=== PATIENT | male | born 1955 | race Caucasian/White ===

== ENCOUNTER 2017-10-27 08:34 | Observation (INO) | payer MEDICARE ==
[2017-10-27] VITALS (9 sets, daily range): BP systolic 111–164; BP diastolic 65–102; PULSE 71–98; RESP 16–18; TEMP 96–98.4; O2SAT 93–100
[~2017-10-27] VITALS: Ht 160 cm; Wt 70.8 kg
[2017-10-27] MEDS ORDERED: AMLO5TAB2 PO (08:53)
[2017-10-27] MEDS ORDERED: ISOS30TA3 PO (08:53)
[2017-10-27] MEDS ORDERED: CLON.1T T-DERMAL (08:53)
[2017-10-27] MEDS ORDERED: ROSU5 PO (08:53)
[2017-10-27] MEDS ORDERED: BISO10TA2 PO (08:53)
[2017-10-27] MEDS ORDERED: HYDR50TA94 PO (08:53)
[2017-10-27] MEDS ORDERED: DIAZ5 PO (08:53)
[2017-10-27] MEDS ORDERED: FLUO1TAB3 PO (08:53)
[2017-10-27] MEDS ORDERED: NEUR400C PO (08:53)
[2017-10-27] MEDS ORDERED: CELE200C PO (08:53)
[2017-10-27] MEDS ORDERED: ASPI-516 CHEW (08:53)
--- NOTE | 2017-10-27 09:03 | PD ---
HPI Chief Complaint: Chest Pain Time Seen by Provider: 08:42 Travel History International Travel<30 days: No Contact w/Intl Traveler<30days: No Traveled to known affect area: No History of Present Illness HPI This patient complains of pain in multiple areas. He's had left sided chest pressure and heaviness intermittently for 2 weeks. Symptoms are nonexertional. He has history of 2 cardiac stents. 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 He also complains of having bilateral lower quadrant abdominal pain and low back pain for one week. Denies diarrhea or vomiting or fever. He's had partial colectomy due to colon cancer. He has no appendix. No alleviating factors. No exacerbating factors. Symptoms are moderately severe. PFSH Past Medical History Anxiety: Yes Depression: Yes Cancer: Yes Cardiovascular Problems: Yes High Cholesterol: Yes Diabetes: Yes Patient Takes Glucophage: No Diminished Hearing: No Hypertension: Yes Kidney Stones: Yes Influenza Vaccination: Yes ?: Not Social History Alcohol Use: No Tobacco Use: No Allergies-Medications (Allergen,Severity, Reaction): Coded Allergies: ciprofloxacin (Verified Allergy, Unknown, 10/27/17) Reported Meds & Prescriptions Reported Meds & Active Scripts Active Reported Amlodipine (Amlodipine Besylate) 5 Mg Tab 5 Mg PO DAILY Crestor (Rosuvastatin Calcium) 5 Mg Tab 5 Mg PO DAILY Celebrex (Celecoxib) 200 Mg Cap 200 Mg PO BID Fluoxetine (Fluoxetine HCl) 20 Mg Tab 20 Mg PO TID Neurontin (Gabapentin) 400 Mg Cap 400 Mg PO QID Hydroxyzine HCl 50 Mg Tab 50 Mg PO QID PRN Valium (Diazepam) 5 Mg Tab 5 Mg PO TID PRN [id number] 168 HR Patch (Clonidine) 0.1 Mg/24 Hr Patch 1 Patch T-DERMAL Q7D Aspirin 81 Mg Chew 81 Mg CHEW DAILY Isosorbide Mononitrate ER (Isosorbide Mononitrate) 30 Mg Thierno 30 Mg PO DAILY Bisoprolol-Hydrochlorothiazide 10-6.25 Mg Tab 1 Tab PO DAILY Review of Systems General / Constitutional: No: Fever Eyes: No: Visual changes HENT: No: Headaches Cardiovascular: Positive: Chest Pain or Discomfort Respiratory: No: Shortness of Breath Gastrointestinal: Positive: Abdominal Pain Genitourinary: No: Dysuria Musculoskeletal: Positive: Pain Skin: No Rash Neurologic: No: Weakness Psychiatric: No: Depression Endocrine: No: Polydipsia Hematologic/Lymphatic: No: Easy Bruising Physical Exam Narrative GENERAL: Well-nourished, well-developed patient with chest pain and abdominal pain and back pain. SKIN: Focused skin assessment reveals no rash and nodules. Skin is Warm and dry. HEAD: Atraumatic. Normocephalic. EYES: Pupils equal and round. No scleral icterus. No injection or drainage. ENT: No nasal bleeding or discharge. Mucous membranes pink and moist. NECK: Trachea midline. No JVD. CARDIOVASCULAR: Regular rate and rhythm. No murmur appreciated. RESPIRATORY: No accessory muscle use. Clear to auscultation. Breath sounds equal bilaterally. GASTROINTESTINAL: Abdomen soft, bilateral lower quadrants are tender without rebound or guarding, nondistended. Hepatic and splenic margins not palpable. MUSCULOSKELETAL: No obvious deformities. No clubbing. No cyanosis. No edema. NEUROLOGICAL: Awake and alert. No obvious cranial nerve deficits. Motor grossly within normal limits. Normal speech. PSYCHIATRIC: Appropriate mood and affect; insight and judgment normal. Data Data Last Documented VS Vital Signs Date Time Temp Pulse Resp B/P (MAP) Pulse Ox O2 Delivery O2 Flow Rate FiO2 10/27/17 10:49 74 18 121/76 (91) 98 Room Air 10/27/17 08:43 98.4 Orders Orders Complete Blood Count With Diff (10/27/17 08:39) Comprehensive Metabolic Panel (10/27/17 08:39) Urinalysis - C+S If Indicated (10/27/17 08:39) Iv Access Insert/Monitor (10/27/17 08:39) Oxygen Administration (10/27/17 08:39) Oximetry (10/27/17 08:39) Lipase (10/27/17 08:39) Electrocardiogram (10/27/17 08:39) Ckmb (Isoenzyme) Profile (10/27/17 08:39) Troponin I (10/27/17 08:39) Chest, Single Ap (10/27/17 08:39) Ecg Monitoring (10/27/17 08:39) Ct Abd/Pel W Iv Contrast(Rout) (10/27/17 ) Ct Thorax/ Chest W Iv Contrast (10/27/17 ) Iohexol 350 Inj (Omnipaque 350 Inj) (10/27/17 09:34) Labs Laboratory Tests Test 10/27/17 09:00 10/27/17 09:05 White Blood Count 10.9 TH/MM3 Red Blood Count 5.57 MIL/MM3 Hemoglobin 16.3 GM/DL Hematocrit 49.5 % Mean Corpuscular Volume 88.8 FL Mean Corpuscular Hemoglobin 29.3 PG Mean Corpuscular Hemoglobin Concent 33.0 % Red Cell Distribution Width 12.3 % Platelet Count 335 TH/MM3 Mean Platelet Volume 8.7 FL Neutrophils (%) (Auto) 68.7 % Lymphocytes (%) (Auto) 22.9 % Monocytes (%) (Auto) 7.1 % Eosinophils (%) (Auto) 0.7 % Basophils (%) (Auto) 0.6 % Neutrophils # (Auto) 7.4 TH/MM3 Lymphocytes # (Auto) 2.5 TH/MM3 Monocytes # (Auto) 0.8 TH/MM3 Eosinophils # (Auto) 0.1 TH/MM3 Basophils # (Auto) 0.1 TH/MM3 CBC Comment DIFF FINAL Differential Comment Sodium Level 139 MEQ/L Potassium Level 4.2 MEQ/L Chloride Level 104 MEQ/L Anion Gap 8 MEQ/L Estimat Glomerular Filtration Rate 93 ML/MIN Total Creatine Kinase 64 U/L Troponin I LESS THAN 0.02 NG/ML Lipase 173 U/L Urine Collection Type CLEAN CATCH Urine Color YELLOW Urine Turbidity CLEAR Urine pH 6.0 Urine Specific [place] 1.024 Urine Protein NEG mg/dL Urine Glucose (UA) NEG mg/dL Urine Ketones NEG mg/dL Urine Occult Blood NEG Urine Nitrite NEG Urine Bilirubin NEG Urine Leukocyte Esterase NEG Urine RBC 0-3 /hpf Urine Squamous Epithelial Cells 0-5 /hpf Microscopic Urinalysis Comment CULT NOT INDICATED Urine Collection Time 09:05 [facility] Medical Decision Making Medical Screen Exam Complete: Yes Emergency Medical Condition: Yes Medical Record Reviewed: Yes Differential Diagnosis AAA, aortic dissection, coronary disease, ACS, ID Narrative Course I have reviewed the patient's electronic medical record. Patient is a snow bird from [place]. He is never been here before. No prior studies to compare Patient could have any number of serious or critical medical issues causing his pains. I've ordered extensive workup to rule out emergent conditions. IV placed I reviewed the EKG which shows sinus rhythm but no acute ST elevation I reviewed the chest x-ray negative for pneumothorax or consolidation Extended cardiac monitoring shows sinus rhythm without ectopy CBC is normal Metabolic profile is normal CK is negative Troponin is negative Coagulation studies are normal Lipase is normal LFTs are normal CT abdomen and pelvis is negative for AAA CT chest is negative for aneurysm or dissection Patient has history of CAD and having chest discomfort. Workup here is negative but he will be a 23 hour observation in the chest pain center to rule out cardiac cause of his symptoms. Call has been placed to hospitalist to discuss Diagnosis Primary Impression: Chest pain in adult Admitting Information Admitting Physician Requests: Observation Aj Watkins MD Oct 27, 2017 09:03
[2017-10-27 09:10] LABS: AUTOMATED NEUTROPHIL # 7.4 TH/MM3 (1.8-7.7); BASOPHIL # 0.1 TH/MM3 (0-0.2); BASOPHIL % 0.6 % (0.0-2.0); EOSINOPHIL # 0.1 TH/MM3 (0-0.4); EOSINOPHIL % 0.7 % (0.0-4.0); HEMATOCRIT 49.5 % (39.0-51.0); HEMOGLOBIN 16.3 GM/DL (13.0-17.0); LYMPH % 22.9 % (9.0-44.0); LYMPHOCYTE # 2.5 TH/MM3 (1.0-4.8); MEAN CELL VOLUME 88.8 FL (80.0-100.0); MEAN CORPUSCULAR HEMOGLOBIN 29.3 PG (27.0-34.0); MEAN PLATELET VOLUME 8.7 FL (7.0-11.0); MONO % 7.1 % (0.0-8.0); MONOCYTE # 0.8 TH/MM3 (0-0.9); NEUT % 68.7 % (16.0-70.0); PLATELET COUNT 335 TH/MM3 (150-450); RED BLOOD COUNT 5.57 MIL/MM3 (4.50-5.90); RED CELL DISTRIBUTION WIDTH 12.3 % (11.6-17.2); WHITE BLOOD COUNT 10.9 TH/MM3 (4.0-11.0)
[2017-10-27 09:13] LABS: BILIRUBIN, URINE NEG (NEG); BLOOD, URINE NEG (NEG); GLUCOSE,URINE NEG (NEG); KETONE, URINE NEG (NEG); NITRITE,URINE NEG (NEG); URINE LEUKOCYTE ESTERASE NEG (NEG)
[2017-10-27 09:15] LABS: URINE COLOR YELLOW (YELLW/STRAW)
[2017-10-27 09:16] LABS: CHLORIDE 104 MEQ/L (98-107); SODIUM (NA) 139 MEQ/L (136-145)
[2017-10-27 09:16] LABS: RBC, URINE 0-3 /hpf (0-3); SQUAMOUS EPITHELIAL CELL URINE 0-5 /hpf (0-5)
[2017-10-27] MEDS ORDERED: IOHEXOL 350 MG/ML 10 ML VIAL (for RAD DIAG) IVCONTRAST ONE (09:34)
--- NOTE | 2017-10-27 09:36 | RADRPT ---
EXAM DATE/TIME: 10/27/2017 08:53 [facility] COMPARISON: No previous studies available for comparison. INDICATIONS : Chest pain MEDICAL HISTORY : Carcinoma, bladder. Diabetes mellitus type II. Hypertension. SURGICAL HISTORY : Cardiac catherization ENCOUNTER: Initial ACUITY: 1 day PAIN SCORE: 2/10 LOCATION: Bilateral chest FINDINGS: The cardiac silhouette is enlarged in transverse diameter. There is probable parenchymal scarring in the left base and possible bronchiectasis. There is no evidence of pneumonia. No pleural effusions a re identified. There is eventration of the right hemidiaphragm. There is prominence of the aortic kno b is with calcification characteristic of atherosclerotic vascular disease. CONCLUSION: 1. Cardiomegaly. 2. Probable scarring left base. Rufus Arellano MD on October 27, 2017 at 9:32 Board Certified Radiologist. This report was verified electronically.
--- NOTE | 2017-10-27 09:42 | RADRPT ---
EXAM DATE/TIME: 10/27/2017 09:13 [facility] COMPARISON: No previous studies available for comparison. INDICATIONS : Chest pain. Evaluate for aneurysm. IV CONTRAST: 90 cc Omnipaque 350 (iohexol) IV ; Cumulative dose for multiple exams. RADIATION DOSE: 12.73 CTDIvol (mGy) ; Combined studies - Thorax/Abdomen/Pelvis MEDICAL HISTORY : Cardiovascular disease. Carcinoma, bladder. Diabetes mellitus type 2.Hypertension. Renal calculi. SURGICAL HISTORY : Carotid endarterectomy. Colon resection.Appendectomy.Bladder surgery. ENCOUNTER: Initial ACUITY: 1 week PAIN SCALE: 8/10 LOCATION: chest TECHNIQUE: Volumetric scanning of the chest was performed. Using automated exposure control and adjustment of t he mA and/or kV according to patient size, radiation dose was kept as low as reasonably achievable to obtain optimal diagnostic quality images. DICOM format image data is available electronically for review and comparison. Follow-up recommendations for detected pulmonary nodules are based at a minimum on nodule size and pa tient risk factors according to Fleischner Society Guidelines. FINDINGS: LUNGS: Scattered pleural thickening is evident. No suspicious lung lesions. MEDIASTINUM: The heart and great vessels demonstrate no acute abnormality. There is no mediastinal or hilar lymph adenopathy. AXILLAE: Within normal limits. No lymphadenopathy. SKELETAL: Within normal limits for patient age. MISCELLANEOUS: Moderate fatty infiltration to liver. CONCLUSION: There is no aneurysm. There is no significant coronary calcifications as calls for chest pain. There is no pericardial effusion. Phillip Jacinto MD FACR on October 27, 2017 at 9:38 Board Certified Radiologist. This report was verified electronically.
--- NOTE | 2017-10-27 09:54 | RADRPT ---
EXAM DATE/TIME: 10/27/2017 09:13 [facility] COMPARISON: No previous studies available for comparison. INDICATIONS : Lower abdominal pain. IV CONTRAST: 90 cc Omnipaque 350 (iohexol) IV ; Cumulative dose for multiple exams. ORAL CONTRAST: No oral contrast ingested. RADIATION DOSE: 12.73 CTDIvol (mGy) ; Combined studies - Thorax/Abdomen/Pelvis MEDICAL HISTORY : Renal calculi. Carcinoma, bladder. Cardiovascular diseaseHypertension. Diabetes. SURGICAL HISTORY : Carotid endarterectomy. Appendectomy.Colon resection.Bladder surgery. ENCOUNTER: Initial ACUITY: 2 weeks PAIN SCALE: 8/10 LOCATION: Bilateral lower quadrant TECHNIQUE: Volumetric scanning of the abdomen and pelvis was performed. Using automated exposure control and ad justment of the mA and/or kV according to patient size, radiation dose was kept as low as reasonably achievable to obtain optimal diagnostic quality images. DICOM format image data is available electro nically for review and comparison. FINDINGS: The lung base is clear. Moderate replacement to the liver Spleen, pancreas, adrenals and kidneys unremarkable Minimal vascular calcification without aneurysmal dilatation Pelvic contents are remarkable only for scattered diverticuli in sigmoid colon Review of bone windows reveals only degenerative changes. CONCLUSION: 1. Fatty replacement of the liver. 2. Moderate atherosclerotic vascular disease without aneurysm. Phillip Jacinto MD FACR on October 27, 2017 at 9:40 Board Certified Radiologist. This report was verified electronically.
[2017-10-27 09:56] LABS: ALBUMIN 3.7 GM/DL (3.4-5.0); BICARBONATE 26.9 MEQ/L (21.0-32.0); GLUCOSE,RANDOM 141 MG/DL (74-106); LIPASE 173 U/L (73-393)
[2017-10-27 09:57] LABS: ALT (GPT) 32 U/L (12-78); CREATININE 0.84 MG/DL (0.60-1.30); GLOMERULAR FILTRATION RATE 93 ML/MIN (>89)
[2017-10-27 09:58] LABS: TOTAL BILIRUBIN ADULT 0.4 MG/DL (0.2-1.0)
[2017-10-27 09:59] LABS: TOTAL PROTEIN 7.6 GM/DL (6.4-8.2)
[2017-10-27 10:00] LABS: ALKALINE PHOSPHATASE 62 U/L (45-117)
[2017-10-27 10:08] LABS: BLOOD UREA NITROGEN 14 MG/DL (7-18)
[2017-10-27 10:09] LABS: AST (GOT) 19 U/L (15-37)
[2017-10-27 10:18] LABS: TROPONIN I LESS THAN 0.02 NG/ML (0.02-0.05)
[2017-10-27] MEDS ORDERED: SODIUM CHLORIDE 0.9% FLUSH 10 ML FLUSH IV FLUSH PRN (12:00)
[2017-10-27] MEDS: ACETAMINOPHEN 500 MG CPLT PO PRN ×2 (13:06→20:35)
[2017-10-27 13:26] LABS: TROPONIN I LESS THAN 0.02 NG/ML (0.02-0.05)
[2017-10-27] MEDS ORDERED: hydrOXYzine HCL 50 MG TAB PO PRN (14:15)
--- NOTE | 2017-10-27 14:25 | HHI.HP ---
[facility] Non-Staff Admission Diagnosis chest pain Diagnoses: (1) Chest pain in adult Diagnosis: Principal Chief Complaint: Chest pain Travel History International Travel<30 Days: No Contact w/Intl Traveler <30 Da: No Traveled to Known Affected Are: No History of Present Illness 61-year-old English male who is vacationing down here until February presented with multiple complaints of abdominal pain, chest pain, thrush. Patient does have a rather extensive medical history with hypertension, hyperlipidemia, coronary disease status post stenting and bypass surgery, chronic back pain, reflex sympathetic dystrophy, gouty arthritis, diabetes. Patient states that his symptoms been going on for a rather extensive amount of time. Dating back to before . Patient started developing gouty arthritis inflammation in which he was put on prednisone which did help, he started developing some abdominal discomfort since then. He described as a intermittent abdominal cramping/pain with burning sensation going up his chest and into his throat. He started developing dental pain back around October 10, 2016 and he went to a dentist locally and had a couple teeth removed. Ever since then he's been having worsening discomforts. He had another attack of gout so he took another regimen of steroids and he started having worsening frequency of chest discomfort, abdominal discomfort. He states that the pain usually starts in his stomach region and then goes up into his chest where he describes it as a burning/heaviness sensation and eventually goes up into his neck. There is no nausea, vomiting, diaphoresis. There were episodes where he had shortness of breath. The episodes resolved on her own. Patient states that he did not come to the hospital sooner because he was trying to move into a place down here. He has finally settled into a place of residence so he came to the urgent department at this time. Patient does have history of chronic pain, anxiety and he has been trying to wean himself off Lortab and Valium. He was on medical marijuana up in [place], however he has not used any since being here in [place]. Patient does have a director field services that he follows with in [place]. I did place a call to Dr Michaels and found out that the patient has have a rather extensive cardiac history. Had a nuclear stress test done in April 2017 which was completely normal. He recommended that we take the patient straight to catheterization because of the patient's history, he indicates that if we do not then the patient will continue to come back to the hospital until he gets a cardiac catheterization. At the present time patient is complaining of multiple complaints, at the present time his biggest complaint is dry mouth, possible thrush. He is not having any active chest pain at this time. Review of Systems Cardiovascular: COMPLAINS OF: Chest pain Gastrointestinal: COMPLAINS OF: Abdominal pain, Difficulty Swallowing Musculoskeletal: COMPLAINS OF: Back pain Except as stated in HPI: all other systems reviewed are Neg Past Family Social History Past Medical History Hypertension Hyperlipidemia Coronary artery disease Diabetes Anxiety, depression Reflex sympathetic dystrophy Gouty arthritis History of bladder cancer Past Surgical History Right carotid endarterectomy Coronary bypass surgery Cardiac catheterization with stenting Appendectomy with partial colon resection Right knee surgery Reported Medications Reported Meds & Active Scripts Active Reported Amlodipine (Amlodipine Besylate) 5 Mg Tab 5 Mg PO DAILY Crestor (Rosuvastatin Calcium) 5 Mg Tab 5 Mg PO DAILY Celebrex (Celecoxib) 200 Mg Cap 200 Mg PO BID Fluoxetine (Fluoxetine HCl) 20 Mg Tab 20 Mg PO TID Neurontin (Gabapentin) 400 Mg Cap 400 Mg PO QID Hydroxyzine HCl 50 Mg Tab 50 Mg PO QID PRN Valium (Diazepam) 5 Mg Tab 5 Mg PO TID PRN [id number] 168 HR Patch (Clonidine) 0.1 Mg/24 Hr Patch 1 Patch T-DERMAL Q7D Aspirin 81 Mg Chew 81 Mg CHEW DAILY Isosorbide Mononitrate ER (Isosorbide Mononitrate) 30 Mg Thierno 30 Mg PO DAILY Bisoprolol-Hydrochlorothiazide 10-6.25 Mg Tab 1 Tab PO DAILY Allergies: Coded Allergies: ciprofloxacin (Verified Allergy, Unknown, 10/27/17) Family History Reviewed and patient states is significant for heart disease, kidney disease, diabetes Social History Patient quit smoking in 2000, prior to that he smoked 3 pack a cigarettes a day since he was 17 years old. Denies any alcohol or illicit drugs Physical Exam Vital Signs Vital Signs Date Time Temp Pulse Resp B/P (MAP) Pulse Ox O2 Delivery O2 Flow Rate FiO2 10/27/17 13:00 96.0 78 111/65 (80) 97 10/27/17 12:39 96 21 10/27/17 12:10 10/27/17 10:49 74 18 121/76 (91) 98 Room Air 10/27/17 09:14 90 18 164/88 (113) 99 Room Air 10/27/17 08:53 88 10/27/17 08:46 100 Room Air 10/27/17 08:43 98.4 88 18 160/102 (121) 100 Physical Exam GENERAL: Well-developed, well-nourished, in no acute distress. alert and orientated HEENT: Head is normocephalic without any lesions or masses noted. Facial features are symmetric. Eyes: Pupils equal round reactive to light. Extraocular muscles are intact. Conjunctivae were clear. Oropharyngeal: Pharynx without any erythema edema. Tongue is midline without deviation. Buccal mucosa is moist with possible white plaque lesions on the inside of his cheeks NECK: Supple without any masses. Trachea midline no deviation. No JVD, no bruits are appreciated CARDIAC: Regular rhythm, regular rate. S1/S2 are heard. No murmurs gallops or rubs. LUNGS: Clear to auscultation bilaterally. No wheeze, rhonchi or rales. No use of accessory muscles on inspiration or expiration. ABDOMEN: Soft, nontender. Nondistended. Bowel sounds heard in all 4 quadrants. No organomegaly or masses. Negative rebound, negative guarding EXTREMITIES: No edema, pulses are equal bilaterally. No cyanosis or clubbing NEUROLOGY: Mood and affect appear appropriate. Cranial nerves II through XII grossly intact. Muscle strength 5/5 in upper and lower extremities bilaterally. Deep tendon reflexes are 2+ in upper and lower extremities bilaterally. Laboratory Laboratory Tests Test 10/27/17 09:00 10/27/17 09:05 10/27/17 12:30 White Blood Count 10.9 Red Blood Count 5.57 Hemoglobin 16.3 Hematocrit 49.5 Mean Corpuscular Volume 88.8 Mean Corpuscular Hemoglobin 29.3 Mean Corpuscular Hemoglobin Concent 33.0 Red Cell Distribution Width 12.3 Platelet Count 335 Mean Platelet Volume 8.7 Neutrophils (%) (Auto) 68.7 Lymphocytes (%) (Auto) 22.9 Monocytes (%) (Auto) 7.1 Eosinophils (%) (Auto) 0.7 Basophils (%) (Auto) 0.6 Neutrophils # (Auto) 7.4 Lymphocytes # (Auto) 2.5 Monocytes # (Auto) 0.8 Eosinophils # (Auto) 0.1 Basophils # (Auto) 0.1 CBC Comment DIFF FINAL Differential Comment Sodium Level 139 Potassium Level 4.2 Chloride Level 104 Anion Gap 8 Estimat Glomerular Filtration Rate 93 Total Creatine Kinase 64 57 Troponin I LESS THAN 0.02 LESS THAN 0.02 Lipase 173 Urine Collection Type CLEAN CATCH Urine Color YELLOW Urine Turbidity CLEAR Urine pH 6.0 Urine Specific [place] 1.024 Urine Protein NEG Urine Glucose (UA) NEG Urine Ketones NEG Urine Occult Blood NEG Urine Nitrite NEG Urine Bilirubin NEG Urine Leukocyte Esterase NEG Urine RBC 0-3 Urine Squamous Epithelial Cells 0-5 Microscopic Urinalysis Comment CULT NOT INDICATED Urine Collection Time 09:05 Result Diagram: 10/27/17 0900 10/27/17 0900 Imaging Last Impressions Chest X-Ray 10/27/17 0839 Signed Impressions: Service Date/Time: Friday, October 27, 2017 08:53 - CONCLUSION: 1. Cardiomegaly. 2. Probable scarring left base. Rufus Arellano MD Chest CT 10/27/17 0000 Signed Impressions: Service Date/Time: Friday, October 27, 2017 09:13 - CONCLUSION: There is no aneurysm. There is no significant coronary calcifications as calls for chest pain. There is no pericardial effusion. Phillip Jacinto MD FACR Abdomen/Pelvis CT 10/27/17 0000 Signed Impressions: Service Date/Time: Friday, October 27, 2017 09:13 - CONCLUSION: 1. Fatty replacement of the liver. 2. Moderate atherosclerotic vascular disease without aneurysm. Phillip Jacinto MD FACR Caprini VTE Risk Assessment Caprini VTE Risk Assessment: Mod/High Risk (score >= 2) Caprini Risk Assessment Model Point Value = 1 Point Value = 2 Point Value = 3 Point Value = 5 Age 41-60 Minor surgery BMI > 25 kg/m2 Swollen legs Varicose veins or History of unexplained or recurrent spontaneous Oral contraceptives or hormone replacement Sepsis (< 1 month) Serious lung disease, including pneumonia (< 1 month) Abnormal pulmonary function Acute myocardial infarction Congestive heart failure (< 1 month) History of inflammatory bowel disease Medical patient at bed rest Age 61-74 Arthroscopic surgery Major open surgery (> 45 min) Laparoscopic surgery (> 45 min) Malignancy Confined to bed (> 72 hours) Immobilizing plaster cast Central venous access Age >= 75 History of VTE Family history of VTE Factor V Leiden Prothrombin [id number] Lupus anticoagulant Anticardiolipin antibodies Elevated serum homocysteine Heparin-induced thrombocytopenia Other congenital or acquired thrombophilia Stroke (< 1 month) Elective arthroplasty Hip, pelvis, or leg fracture Acute spinal cord injury (< 1 month) Prophylaxis Regimen Total Risk Factor Score Risk Level Prophylaxis Regimen 0-1 Low Early ambulation 2 Moderate Order ONE of the following: *Sequential Compression Device (SCD) *Heparin 5000 units SQ BID 3-4 Higher Order ONE of the following medications: *Heparin 5000 units SQ TID *Enoxaparin/Lovenox 40 mg SQ daily (WT < 150 kg, CrCl > 30 mL/min) *Enoxaparin/Lovenox 30 mg SQ daily (WT < 150 kg, CrCl > 10-29 mL/min) *Enoxaparin/Lovenox 30 mg SQ BID (WT < 150 kg, CrCl > 30 mL/min) AND/OR *Sequential Compression Device (SCD) 5 or more Highest Order ONE of the following medications: *Heparin 5000 units SQ TID (Preferred with Epidurals) *Enoxaparin/Lovenox 40 mg SQ daily (WT < 150 kg, CrCl > 30 mL/min) *Enoxaparin/Lovenox 30 mg SQ daily (WT < 150 kg, CrCl > 10-29 mL/min) *Enoxaparin/Lovenox 30 mg SQ BID (WT < 150 kg, CrCl > 30 mL/min) AND *Sequential Compression Device (SCD) Assessment and Plan Assessment and Plan Chest pain, atypical presentation Patient with increased risk factors to include age, hypertension, hyponatremia, coronary artery disease, history tobacco use, family history Patient had workup to rule out any dissection, pulmonary etiology We'll continue to evaluate for any acute coronary event with serial cardiac enzymes and EKGs Will pursue nuclear stress test if patient ruled out for acute coronary event Discuss with patient's director field services in [place], patient has had nuclear stress test in April 2017, director field services recommended going straight to cardiac catheterization Abdominal pain with reflux, Multifactorial with recent steroid use, recent antibiotics, fungal esophagitis, GERD, gastritis We'll start Protonix 40 mg daily We'll start Mycostatin swish and swallow Hypertension, hyponatremia, coronary disease Continue home medications Check lipid panel Diabetes Accu-Cheks with sliding scale insulin Chronic pain, reflex sympathetic dystrophy, anxiety, depression Continue home medications DVT prevention Sequential compression devices Aj Crane Oct 27, 2017 14:25
[2017-10-27] MEDS ORDERED: ONDANSETRON HCL 4 MG/2 ML VIAL IV PUSH PRN (14:30)
[2017-10-27] MEDS ORDERED: MAGNESIUM HYDROXIDE SUSP 30 ML CUP PO PRN (14:30)
[2017-10-27] MEDS ORDERED: DOCUSATE SODIUM 100 MG CAP PO PRN (14:30)
[2017-10-27] MEDS ORDERED: CALCIUM CARBONATE 500 MG CHEWABLE TAB CHEW PRN (14:30)
[2017-10-27] MEDS ORDERED: NITROGLYCERIN 0.4 MG SL 25 TABS/BTL SL PRN (14:30)
[2017-10-27] MEDS ORDERED: TEMAZEPAM 15 MG CAP PO PRN (14:30)
[2017-10-27 15:03] LABS: TROPONIN I LESS THAN 0.02 NG/ML (0.02-0.05)
[2017-10-27] MEDS: PANTOPRAZOLE SOD 40 MG DELAYED RELEASE TAB PO SCH (15:08)
[2017-10-27] MEDS ORDERED: cloNIDine HCL 0.1 MG/24 HR PATCH T-DERMAL SCH (16:00)
[2017-10-27] MEDS: NYSTATIN SUSP 500,000 U/5 ML CUP SWISH-SWAL SCH ×2 (16:29→20:34)
[2017-10-27] MEDS: GABAPENTIN 400 MG CAP PO SCH ×2 (16:29→20:33)
[2017-10-27] MEDS: FLUoxetine HCL 20 MG CAP PO SCH (16:30)
[2017-10-27] MEDS: SODIUM CHLORIDE 0.9% FLUSH 10 ML FLUSH IV FLUSH SCH (20:34)
[2017-10-27] MEDS ORDERED: ACETAMINOPHEN/HYDROcodone 325 MG/5 MG TAB PO PRN (21:00)
--- NOTE | 2017-10-27 22:04 | EKG ---
Date Performed: 10/27/2017 Time Performed: 08:38:59 PTAGE: 61 years EKG: Sinus rhythm POSSIBLE INFERIOR MYOCARDIAL INFARCTION BORDERLINE ECG NO PREVIOUS TRACING DOCTOR: Estrellita Mcneill Interpretating Date/Time 10/27/2017 22:04:26
--- NOTE | 2017-10-27 22:10 | EKG ---
Date Performed: 10/27/2017 Time Performed: 12:40:56 PTAGE: 61 years EKG: Sinus rhythm NONSPECIFIC T-WAVE ABNORMALITY BORDERLINE ECG Since PREVIOUS TRACING , new nonspecific ST changes PREVIOUS TRACIN10/27/2017 08.38 DOCTOR: Estrellita Mcneill Interpretating Date/Time 10/27/2017 22:08:58
--- NOTE | 2017-10-27 22:13 | EKG ---
Date Performed: 10/27/2017 Time Performed: 14:32:06 PTAGE: 61 years EKG: Sinus rhythm PROBABLE INFERIOR MYOCARDIAL INFARCTION ABNORMAL ECG Since PREVIOUS TRACING , no significant change noted PREVIOUS TRACIN10/27/2017 12.40 DOCTOR: Estrellita Mcneill Interpretating Date/Time 10/27/2017 22:11:30
[2017-10-27] MEDS: ACETAMINOPHEN/HYDROcodone 325 MG/10 MG TAB PO PRN (22:25)
[2017-10-28] VITALS: BP 114/72; PULSE 62; RESP 16; TEMP 96.5; O2SAT 97
[2017-10-28 04:00] VITALS: BP 100/72; PULSE 69; RESP 20; TEMP 96.8; O2SAT 99
[2017-10-28] MEDS: ACETAMINOPHEN/HYDROcodone 325 MG/10 MG TAB PO PRN ×2 (05:28→12:40)
[2017-10-28] MEDS ORDERED: ISOSORBIDE MONONITRATE 30 MG TAB PO SCH (07:00)
[2017-10-28 08:00] VITALS: BP 146/70; PULSE 67; PULSE 88; RESP 18; TEMP 97.8; O2SAT 99
[2017-10-28 08:43] VITALS: O2SAT 98
[2017-10-28] MEDS: GABAPENTIN 400 MG CAP PO SCH ×2 (09:00→12:42)
[2017-10-28] MEDS: NYSTATIN SUSP 500,000 U/5 ML CUP SWISH-SWAL SCH ×2 (09:00→12:42)
[2017-10-28] MEDS ORDERED: ATORVASTATIN 10 MG TAB PO SCH (09:00)
[2017-10-28] MEDS: FLUoxetine HCL 20 MG CAP PO SCH (09:00)
[2017-10-28] MEDS ORDERED: BISOPROLOL HCTZ PO SCH (09:00)
[2017-10-28] MEDS ORDERED: amLODIPine BESYLATE 5 MG TAB PO SCH (09:00)
[2017-10-28] MEDS ORDERED: ASPIRIN 81 MG CHEW TAB CHEW SCH (09:00)
[2017-10-28] MEDS: SODIUM CHLORIDE 0.9% FLUSH 10 ML FLUSH IV FLUSH SCH (10:39)
[2017-10-28] MEDS: PANTOPRAZOLE SOD 40 MG DELAYED RELEASE TAB PO SCH (10:41)
--- NOTE | 2017-10-28 10:41 | RADRPT ---
EXAM DATE/TIME: 10/28/2017 09:02 [place] COMPARISON: No previous studies available for comparison. INDICATIONS : Substernal chest pain for two weeks. Angina. Coronary artery disease. DOSE: 26.1 mCi Tc99m Myoview at stress. 8.5 mCi Tc99m Myoview at rest. 0.4 mg Lexiscan STRESS SYMPTOMS: Dyspea. EJECTION FRACTION: > 70% MEDICAL HISTORY : Hypertension. Carcinoma, colon. SURGICAL HISTORY : Appendectomy. Colectomy. ENCOUNTER: Initial ACUITY: 2 weeks PAIN SCALE: 6/10 LOCATION: Substernal chest TECHNIQUE: The patient underwent pharmacologic stress with infusion of prescribed dose. Continuous ECG tracing was monitored during stress. Gated SPECT imaging was performed after stress and conventional SPECT i maging was performed at rest. The examination was performed on a SPECT/CT scanner, both attenuation and non-corrected datasets were reviewed. FINDINGS: The gated cineloop images demonstrate no focal wall motion and rounded. The left ventricular ejection fraction is calculated at greater than 70%. The cardiac SPECT stress and rest images demonstrate fix ed defects involving the cardiac apex, anterior wall and lateral wall suggesting infarcts involving t he LAD and LCx distribution. No reversible defects are noted to suggest ischemia. CONCLUSION: 1. Fixed defects involving the cardiac apex, anterior wall and lateral wall suggesting infarcts invol ving the LAD and LCx distributions. 2. No reversible defects to suggest ischemia. 3. No wall motion abnormality. 4. Left ventricular ejection fraction is calculated at greater than 70%. RISK CATEGORY: Low risk (less than 1% annual mortality rate). Claude Cheng MD on October 28, 2017 at 10:35 Board Certified Radiologist. This report was verified electronically.
--- NOTE | 2017-10-28 10:45 | HHI.DCPOC ---
Discharge Care Plan Diagnosis: (1) Chest pain in adult Goals to Promote Your Health * To prevent worsening of your condition and complications * To maintain your health at the optimal level Directions to Meet Your Goals Take your medications as prescribed Follow your dietary instruction Follow activity as directed Keep your appointments as scheduled Take your immunizations and boosters as scheduled If your symptoms worsen call your PCP, if no PCP go to Urgent Care Center or Emergency Room Smoking is Dangerous to Your Health. Avoid second hand smoke Call the 24-hour hour crisis hotline for domestic abuse at [facility] [place] Oct 28, 2017 10:45
[2017-10-28] MEDS ORDERED: Nystatin Liq SWISH-SWAL (10:51)
[2017-10-28] MEDS ORDERED: PANT40TA3 PO (10:51)
[2017-10-28] MEDS ORDERED: REGADENOSON INJ 0.4 MG/5 ML SYR IV ONE (11:11)
[2017-10-28 11:12] LABS: CHOLESTEROL/ HDL RATIO 5.07 RATIO; HDL CHOLESTEROL 35.1 MG/DL (40.0-60.0)
[2017-10-28 12:00] VITALS: BP 126/73; PULSE 72; RESP 18; TEMP 97.4; O2SAT 98
--- NOTE | 2017-10-28 12:58 | HHI.PR ---
Subjective Remarks RN denies any deterioration since last night. pt says his chest pain is gone. Denies any triggering of CP with ambulation/exertion. Objective Vital Signs Date Time Temp Pulse Resp B/P (MAP) Pulse Ox O2 Delivery O2 Flow Rate FiO2 10/28/17 08:43 98 21 10/28/17 08:00 97.8 67 18 146/70 (95) 99 10/28/17 06:28 16 10/28/17 04:00 96.8 69 20 100/72 (81) 99 10/28/17 00:00 96.5 62 16 114/72 (86) 97 10/27/17 21:35 18 10/27/17 20:22 93 21 10/27/17 20:00 71 10/27/17 20:00 96.4 78 18 133/82 (99) 97 10/27/17 18:10 98 10/27/17 16:00 96.0 72 16 124/77 (93) 97 10/27/17 13:00 96.0 78 111/65 (80) 97 I/O 10/27/17 10/27/17 10/27/17 10/28/17 10/28/17 10/28/17 07:00 15:00 23:00 07:00 15:00 23:00 Intake Total 240 ml Output Total 100 ml Balance -100 ml 240 ml Intake Oral 240 ml Output Urine Total 100 ml # Voids 1 4 2 # Bowel Movements 0 0 Result Diagram: 10/27/17 0900 10/27/17 0900 Objective Remarks heart sounds indicated regular rate rhythm, no murmurs A/P Assessment and Plan Chest pain, atypical presentation - resolved while inpatient. Stress test showing no reversible signs of ischemia; shows signs of what appears to be older infarctions. Chest pain is most likely from reflux. We'll discharge patient on Protonix and Mycostatin swish and swallow. Patient to follow-up as a new patient with local cardiology. Patient has met maximal benefit from hospitalization and is clinically stable for discharge. Sam Chavarria MD Oct 28, 2017 12:58
== END 2017-10-28 13:01 | disposition home or self-care (01) ==
LOC: PHED 08:34 → PHEDA 11:10 → PH3B 12:03
PROVIDERS: ADMIT Hospitalist; ATTEND Hospitalist
DX: R07.89 Other chest pain (principal); E87.1 Hypo-osmolality and hyponatremia; E11.9 Type 2 diabetes mellitus without complications; R10.31 Right lower quadrant pain; R10.32 Left lower quadrant pain; M54.5 Low back pain; E78.00 Pure hypercholesterolemia, unspecified; I10 Essential (primary) hypertension; R06.02 Shortness of breath; M10.9 Gout, unspecified; G90.50 Complex regional pain syndrome I, unspecified; E78.5 Hyperlipidemia, unspecified; I25.10 Atherosclerotic heart disease of native coronary artery without angina pectoris; K21.9 Gastro-esophageal reflux disease without esophagitis; K29.70 Gastritis, unspecified, without bleeding; K20.8 Other esophagitis; Z95.5 Presence of coronary angioplasty implant and graft; Z87.891 Personal history of nicotine dependence; Z85.51 Personal history of malignant neoplasm of bladder; R94.31 Abnormal electrocardiogram [ECG] [EKG]
CPT/HCPCS: 71045; 71260; 74177; 78452; 80053; 80061; 81001; 82550; 83690; 84484; 85025; 93005; 93017; 96374; 99285; A9502; G0378; J2405; J2785; Q9967

== ENCOUNTER 2017-11-13 18:38 | Emergency (ER) | payer MEDICARE ==
[2017-11-13] MEDS ORDERED: SODIUM CHLORIDE 0.9% FLUSH 10 ML FLUSH IVF (19:45)
[2017-11-13 20:10] LABS: AUTOMATED NEUTROPHIL # 6.7 TH/MM3 (1.8-7.7); BASOPHIL # 0.3 TH/MM3 (0-0.2); BASOPHIL % 3.8 % (0.0-2.0); EOSINOPHIL % 0.3 % (0.0-4.0); HEMATOCRIT 43.8 % (39.0-51.0); HEMO FLAGS DIFF FINAL; HEMOGLOBIN 14.6 GM/DL (13.0-17.0); LYMPH % 11.1 % (9.0-44.0); MEAN CELL VOLUME 88.6 FL (80.0-100.0); MEAN CORPUSCULAR HEMOGLOBIN 29.6 PG (27.0-34.0); MEAN CORPUSCULAR HGB CONC 33.4 % (32.0-36.0); MEAN PLATELET VOLUME 8.4 FL (7.0-11.0); MONO % 12.3 % (0.0-8.0); MONOCYTE # 1.1 TH/MM3 (0-0.9); NEUT % 72.5 % (16.0-70.0); PLATELET COUNT 222 TH/MM3 (150-450); RED BLOOD COUNT 4.95 MIL/MM3 (4.50-5.90); RED CELL DISTRIBUTION WIDTH 12.2 % (11.6-17.2); WHITE BLOOD COUNT 9.1 TH/MM3 (4.0-11.0)
[2017-11-13 20:19] LABS: CHLORIDE 104 MEQ/L (98-107); POTASSIUM 3.7 MEQ/L (3.5-5.1); SODIUM (NA) 138 MEQ/L (136-145)
[2017-11-13 20:22] LABS: CALCIUM 8.4 MG/DL (8.5-10.1)
[2017-11-13 20:23] LABS: ALBUMIN 3.3 GM/DL (3.4-5.0); ANION GAP 7 MEQ/L (5-15); BICARBONATE 26.6 MEQ/L (21.0-32.0); BLOOD UREA NITROGEN 11 MG/DL (7-18); GLUCOSE,RANDOM 114 MG/DL (74-106)
[2017-11-13 20:24] LABS: APTT (PATIENT) 24.8 SEC (24.3-30.1); PROTHROMBIN TIME - PATIENT 10.2 SEC (9.8-11.6)
[2017-11-13 20:26] LABS: ALT (GPT) 27 U/L (12-78); AST (GOT) 18 U/L (15-37); CREATININE 0.96 MG/DL (0.60-1.30); GLOMERULAR FILTRATION RATE 80 ML/MIN (>89)
[2017-11-13 20:27] LABS: TOTAL BILIRUBIN ADULT 0.4 MG/DL (0.2-1.0); TOTAL PROTEIN 6.8 GM/DL (6.4-8.2)
[2017-11-13 20:29] LABS: ALKALINE PHOSPHATASE 53 U/L (45-117)
[2017-11-13 20:31] LABS: TROPONIN I LESS THAN 0.02 NG/ML (0.02-0.05)
[2017-11-13 21:00] LABS: CREATINE KINASE 54 U/L (39-308)
[2017-11-13] MEDS: IOHEXOL 350 MG/ML 10 ML VIAL (for RAD DIAG) IVCONTRAST (21:12)
[2017-11-13] MEDS: SODIUM CHLORID 0.9% 500 ML INJ 500 ML IV (21:12)
[2017-11-13] MEDS: OSELTAMIVIR PHOSPHATE 75 MG CAP PO (22:03)
== END 2017-11-13 22:25 | disposition home or self-care (01) ==
LOC: PHED 18:38
DX: J11.1 Influenza due to unidentified influenza virus with other respiratory manifestations (principal); R04.0 Epistaxis; E11.9 Type 2 diabetes mellitus without complications; E78.00 Pure hypercholesterolemia, unspecified; F32.9 Major depressive disorder, single episode, unspecified; K21.9 Gastro-esophageal reflux disease without esophagitis; I10 Essential (primary) hypertension; I25.10 Atherosclerotic heart disease of native coronary artery without angina pectoris; Z95.1 Presence of aortocoronary bypass graft; Z85.51 Personal history of malignant neoplasm of bladder; Z95.5 Presence of coronary angioplasty implant and graft; Z79.82 Long term (current) use of aspirin
CPT/HCPCS: 71045; 71275; 80053; 82550; 84484; 85025; 85610; 85730; 87804; 87804-59; 93005; 96360; 99285-25